=== PATIENT | female | born 1975 | race Caucasian/White ===

== ENCOUNTER 2016-12-10 09:47 | Emergency (ER) | payer OTHER ==
[~2016-12-10] VITALS: Ht 165.1 cm; Wt 66.0 kg
[2016-12-10 09:53] VITALS: Ht 165.1 cm; Wt 66.0 kg
[2016-12-10] MEDS ORDERED: KETOROLAC 30 MG INJ IM STA (10:06)
[2016-12-10 10:22] LABS: URINE BLOOD (Dip) POC Negative (NEGATIVE)
--- NOTE | 2016-12-10 10:25 | ERD ---
ER Documentation Chief Complaint Date/Time DATE: 12/10/16 TIME: 10:21 Chief Complaint Complains of back pain x 3 days HPI 41-year-old female complains of left-sided lateral back pain that started this morning after getting out of the shower. She states that she was getting ready in the morning and had sudden pain that is sharp, feels like electricity, worse with movement, better in a sitting position. She states that in 2014 the same thing happened and she had x-rays that were normal. She states that the pain is severe when it comes on when she tries to move however mild when she is not moving. She tried taking ibuprofen 800 mg for coming in with some relief. She denies saddle anesthesia, loss of bowel bladder function. ROS All systems reviewed and are negative except as per history of present illness. Medications Home Meds Active Scripts Cyclobenzaprine Hcl* (Cyclobenzaprine Hcl*) 5 Mg Tablet, 5 MG PO Q8H Y for PAIN , #15 TAB Prov:JON ROJO PA-C 12/10/16 Naproxen* (Naprosyn*) 500 Mg Tablet, 500 MG PO BID Y for PAIN AND/OR INFLAMMATION, #30 TAB Prov:JON ROJO PA-C 12/10/16 Allergies Allergies: Coded Allergies: No Known Allergy (Unverified , 06/29/14) PMhx/Soc History of Surgery: No Anesthesia Reaction: No Hx Neurological Disorder: No Hx Respiratory Disorders: No Hx Cardiac Disorders: No Hx Psychiatric Problems: No Hx Miscellaneous Medical Probl: No Hx Alcohol Use: No Hx Substance Use: No Hx Tobacco Use: No Physical Exam Vitals Vital Signs Date Time Temp Pulse Resp B/P Pulse Ox O2 Delivery O2 Flow Rate FiO2 12/10/16 09:53 99.0 84 20 99/65 99 Physical Exam General: Well-developed, well-nourished. The patient appears in no acute distress. HEENT: Head is normocephalic, atraumatic. No scleral icterus. Neck: Supple. Nontender. Lungs: Clear to auscultation. Normal air movement. Heart: Regular rate and rhythm. S1 and S2 are normal. No murmurs, gallops, or rubs. Abdomen: Soft, nontender, nondistended. Bowel sounds are normoactive. Back: Spasm is appreciated on the left lateral back, no midline tenderness, crepitus. Strength lower extremities 5 out of 5 bilaterally. Extremities: No clubbing or cyanosis. Normal pulses. Moving extremities x 4. No weakness. Neurologic: Alert and oriented 3. No focal deficits. Skin: Normal turgor. No rash or lesions. Results 24 hrs Laboratory Tests Test 12/10/16 10:26 Bedside Urine pH (LAB) 6.5 Bedside Urine Protein (LAB) Negative Bedside Urine Glucose (UA) Negative Bedside Urine Ketones (LAB) Negative Bedside Urine Blood Negative Bedside Urine Nitrite (LAB) Negative Bedside Urine Leukocyte Esterase (L Negative Current Medications Medications (Trade) Dose Ordered Sig/Jeff Route PRN Reason Start Time Stop Time Status Last Admin Dose Admin Ketorolac Tromethamine (Toradol) 30 mg ONCE STAT IM 12/10/16 10:06 12/10/16 10:25 DC Diazepam (Valium) 2.5 mg ONCE ONCE PO 12/10/16 10:30 12/10/16 10:31 DC 12/10/16 10:21 Procedures/MDM ED course: Urine was obtained. She was given Valium 2.5 mg by mouth. Medical decision making: This is a 41-year-old female comes in with low back pain, consistent with a lumbar strain. She does have history of chronic back pain from previous injury, and an and has degenerative disc changes. X-ray report shows Multilevel minimal to mild degenerative changes of lumbar spine, most pronounced at L3-L4 and L4-5. No evidence of fracture. No signs of cauda equina or epidural abscess. This is likely from muscle spasm given she has intermittent sharp pain on the lateral aspect. History does not sound concerning for kidney stone, UTI, pyelonephritis. Departure Diagnosis: Primary Impression: Lumbar strain Additional Impression: Degenerative disc disease Condition: JON Edwards PA-C Dec 10, 2016 10:25
[2016-12-10] MEDS ORDERED: DIAZEPAM 5 MG TAB PO ONE (10:30)
--- NOTE | 2016-12-10 12:15 | RADRPT ---
PROCEDURE: XR Lumbar Spine. CLINICAL INDICATION: Low back pain. TECHNIQUE: Three views of the lumbar spine are available for review COMPARISON: None available FINDINGS: The normal lumbar lordosis is preserved. Alignment is intact. No acute fracture or dislocation is seen. The vertebral body heights are all normal. There are multilevel minimal to mild degenerative changes of lumbar spine, most pronounced at L3-4 and L4-5. IUD is noted projecting over the pelvis. IMPRESSION: 1. No acute fracture or dislocation. 2. Multilevel minimal to mild degenerative changes of lumbar spine, most pronounced at L3-L4 and L4 -5. RPTAT: JJ .Jaylyn Miller MD, Date Time Electronically viewed and signed by .Jaylyn Miller MD, on 12/10/2016 12:15 .N/
[2016-12-10] MEDS ORDERED: NAPR-260 PO (12:24)
[2016-12-10] MEDS ORDERED: CYCL5TAB PO (12:24)
== END 2016-12-10 12:52 | disposition home or self-care (01) ==
LOC: FTE 09:47
DX: S39.012A Strain of muscle, fascia and tendon of lower back, initial encounter (principal); M51.36 Other intervertebral disc degeneration, lumbar region; X58.XXXA Exposure to other specified factors, initial encounter; Y92.9 Unspecified place or not applicable
CPT/HCPCS: 72100; 81003; Z7502; Z7610; J1885